=== PATIENT | female | born 1960 | race Caucasian/White ===

== ENCOUNTER → 2016-10-26 | Outpatient (CLI) | payer BC ==
[~2016-10-26] MED LIST: LRTUNK; MULT-513 PO
== END | disposition home or self-care (01) ==
LOC: C.PAPS 11:39
PROVIDERS: ATTEND Obstetrics & Gynecology
DX: Z01.419 Encounter for gynecological examination (general) (routine) without abnormal findings (principal)

== ENCOUNTER → 2017-08-02 | Outpatient (CLI) | payer BC | END | disposition home or self-care (01) | LOC: C.LAB1850 12:53 | PROVIDERS: ATTEND Neuromusculoskeletal Medicine & OMM | DX: E06.3 Autoimmune thyroiditis (principal) ==

== ENCOUNTER → 2017-08-02 | Outpatient (CLI) | payer BC ==
--- NOTE | 2017-08-03 12:46 | MAMMOGRAPHY REPORT ---
BILATERAL DIGITAL SCREENING MAMMOGRAM TOMOSYNTHESIS WITH CAD: 08/02/2017 CLINICAL HISTORY: Routine screening. Patient has no complaints. TECHNIQUE: Breast tomosynthesis in addition to standard 2D mammography was performed. Current study was also evaluated with a Computer Aided Detection (CAD) system. COMPARISON: Comparison is made to exams dated: 07/12/2015 mammogram, 07/10/2014 mammogram, 07/12/2013 mamm ogram, 07/07/2013 mammogram, 07/06/2012 mammogram, and 07/06/2011 mammogram - [facility]. BREAST COMPOSITION: The tissue of both breasts is heterogeneously dense, which may obscure small mas ses. FINDINGS: There is a new grouping of microcalcifications associated with a 15 mm lobulated mass in t he approximate 1:00 middle one third of the left breast, for which additional spot magnification view s and targeted ultrasound are recommended, although this could represent a cyst with internal calcifi cation. There are other scattered and grouped benign-appearing round and punctate microcalcifications bilater ally. No other new suspicious calcifications, asymmetries, areas of architectural distortion or othe r masses identified. IMPRESSION: ACR BI-RADS CATEGORY 0: INCOMPLETE EVALUATION: NEED ADDITIONAL IMAGING EVALUATION The new grouping of microcalcifications associated with a 15 mm lobulated mass in the approximate 1:0 0 the left breast needs additional evaluation. The patient will be called to schedule an appointment. Approximately 10% of breast cancers are not detected with mammography. A negative mammographic report should not delay biopsy if a clinically suggestive mass is present. Madhavi Oglesby M.D. ay/:08/02/2017 16:32:36 [employer] Store Associate: Nicolasa GREENBERG(R)(M), [facility] letter sent: Addl Imaging 0 BI-RADS Code: ACR BI-RADS Category 0: Incomplete Evaluation: Need Additional Imaging Evaluation
== END | disposition home or self-care (01) ==
LOC: C.MAMM 13:12
PROVIDERS: ATTEND Obstetrics & Gynecology
DX: Z12.31 Encounter for screening mammogram for malignant neoplasm of breast (principal); R92.0 Mammographic microcalcification found on diagnostic imaging of breast

== ENCOUNTER → 2017-08-13 | Outpatient (CLI) | payer BC ==
--- NOTE | 2017-08-16 07:44 | MAMMOGRAPHY REPORT ---
UNILATERAL LEFT DIGITAL DIAGNOSTIC MAMMOGRAM AND TARGETED LEFT ULTRASOUND: 08/13/2017 CLINICAL HISTORY: Callback from screening mammogram for left breast mass and associated calcification s. TECHNIQUE: Spot magnification left CC and ML views were obtained. COMPARISON: Comparison is made to exams dated: 08/02/2017 mammogram, 07/12/2015 mammogram, 07/10/2014 justyna mogram, 07/12/2013 mammogram, 07/12/2013 ultrasound, and 07/07/2013 mammogram - [facility] BREAST COMPOSITION: The tissue of the left breast is heterogeneously dense, which may obscure small masses. FINDINGS: Spot magnification views demonstrate an obscured mass measuring at least 11 mm within the l eft upper outer quadrant. Calcifications are seen within the mass, which are round on the cc view an d demonstrate layering on the ML view, consistent with layering calcifications within a cyst. Targeted ultrasound was performed of the left upper outer quadrant in the region of the mammographic mass. In the left 1:00 periareolar breast, there is an oval circumscribed anechoic mass with a thin internal septation, measuring 1.3 x 0.8 x 1.2 cm. This corresponds with the mammographic mass and ca lcifications and is consistent with a benign cyst. IMPRESSION: ACR BI-RADS CATEGORY 2: BENIGN, TARGETED ULTRASOUND ACR BI-RADS CATEGORY 2: BENIGN The mammographic mass and calcifications corresponds with a benign 1.3 cm cyst in the left 1:00 breas t on ultrasound, which contains internal layering calcifications. Overall findings are benign. There is no mammographic or targeted sonographic evidence of malignancy. A 1 year screening mammogram is r ecommended. The patient has been verbally notified of the results. Approximately 10% of breast cancers are not detected with mammography. A negative mammographic report should not delay biopsy if a clinically suggestive mass is present. Ariana Gonzalez M.D. /:08/13/2017 11:01:34 Single Needle Operator: Juany GOLD)(Ken), [facility] letter sent: Normal 1/2 BI-RADS Code: ACR BI-RADS Category 2: Benign Ultrasound BI-RADS: ACR BI-RADS Category 2: Benign
== END | disposition home or self-care (01) ==
LOC: C.MAMM 09:35
PROVIDERS: ATTEND Obstetrics & Gynecology
DX: N63.20 Unspecified lump in the left breast, unspecified quadrant (principal); R92.1 Mammographic calcification found on diagnostic imaging of breast